=== PATIENT | male | born 1960 | race Caucasian/White ===

== ENCOUNTER → 2019-12-28 08:59 | Outpatient (CLI) | payer OTHER, SELFPAY ==
--- NOTE | 2019-12-28 08:59 | FL_ITS ---
PROCEDURE: FL BARIUM SWALLOW CLINICAL INDICATION: dysphagia COMPARISON: No exams were available for comparison TECHNIQUE: In the upright position the patient was observed to swallow barium in both the AP and lateral view. The cervical esophagus was examined under fluoroscopy with images obtained. The patient was then placed prone in the right anterior oblique position and was observed to swallow barium with Valsalva technique . FLUOROSCOPY TIME: 53 seconds FINDINGS: There was no evidence of aspiration. There was normal peristalsis. No filling defects or mucosal abnormalities. No masses or strictures. No hiatal hernia evident IMPRESSION: Negative barium swallow. Dictated by: Laith Yip MD 12/28/2019 15:19 Electronically signed by Laith Yip MD in [place] 12/28/2019 15:19
== END ==
PROVIDERS: PCP Family Medicine; Visit Provider Otolaryngology
DX: R13.10 Dysphagia, unspecified (principal)
CPT/HCPCS: 74220

== ENCOUNTER → 2020-02-03 12:07 | Outpatient (CLI) | payer OTHER, SELFPAY ==
[2020-02-03 12:45] LABS: Basophils % 0.8 % (0.1-2.0); Eosinophils # 0.2 K/mm3 (0.0-0.4); Eosinophils % 3.4 % (0.1-12.0); Hematocrit 43.3 % (42.0-52.0); Hemoglobin 14.7 g/dL (14.1-18.0); Lymphocytes # 1.8 K/mm3 (0.7-4.5); Lymphocytes % 32.4 % (10-50); Mean Corpuscular HGB Conc 33.9 g/dL (31.8-35.4); Mean Corpuscular Hemoglobin 31.6 pg (27.0-31.2); Mean Corpuscular Volume 93.3 fl (80-94); Mean Platelet Volume 7.9 fl (7.4-10.4); Monocytes # 0.4 K/mm3 (0.1-1.0); Monocytes % 7.5 % (1.7-9.3); Neutrophils # 3.2 K/mm3 (1.8-7.8); Platelet Count 270 K/mm3 (142-424); Red Blood Count 4.64 M/mm3 (4.60-6.20); Red Cell Distribution Width 13.2 % (11.5-17.5); White Blood Count 5.6 K/mm3 (4.8-10.8)
[2020-02-03 12:52] LABS: Activated Partial Thrombo Time 23.3 seconds (23.6-34.0); INR 0.99 (0.9-1.1); Prothrombin Time 10.2 seconds (9.4-11.8)
[2020-02-03 13:45] LABS: Erythrocyte Sedimentation Rate 16 mm/hr (0-20)
== END ==
PROVIDERS: Visit Provider Otolaryngology
DX: R13.10 Dysphagia, unspecified (principal)
CPT/HCPCS: 36415; 85025; 85610; 85651; 85730

== ENCOUNTER 2021-02-18 10:24 | Emergency (ER) | payer BC, SELFPAY ==
[2021-02-18 10:35] VITALS: BP 147/74; PULSE 95; RESP 16; TEMP 37; O2SAT 98; BMI 25.0
[2021-02-18 10:40] VITALS: BP 147/74; PULSE 95; RESP 16; TEMP 37; O2SAT 98; BMI 25.0
--- NOTE | 2021-02-18 11:03 | HMH.EDUTC ---
[facility] [place] Disposition Clinical Impression: Cellulitis of neck, Abscess of neck Insect bite, nonvenomous, of neck, infected Qualifiers: Encounter type: initial encounter Qualified Code(s): S10.96XA - Insect bite of unspecified part of neck, initial encounter Disposition: Home, Self-Care Condition on Discharge: Good Instructions: Cellulitis Additional Instructions: Keep the affected area clean and dry. Follow up with your regular doctor. Take the antibiotics as directed and apply the topical antibiotics as directed. Apply warm wet compresses to the affected area three or four times per day. This will help increase blood flow to the affected area and should help it get better faster. I will call you with your culture results in 3 days (on Friday), but you still need to follow up with your primary care physician regarding this issue. GO TO THE ER FOR ANY WORSENING SYMPTOMS Prescriptions: Mupirocin [Bactroban 2% Ointment 22gm tube] 1 applicatio TP TID 7 Days #1 tube Transmission Status: Received by [id number] Doxycycline Hyclate [Doxycycline 100mg Capsule] 100 mg PO Q12 10 Days #20 cap Transmission Status: Received by [id number] Referrals: Joao Claros MD [Primary Care Provider] - Time of Disposition: 11:17 Medical Decision Making - Medical Records Medical records reviewed: Yes: I reviewed the patient's medical records. - Lyle Inquiry Pt receiving controlled substance: No Vital Signs: 02/18/21 10:35 02/18/21 10:40 02/18/21 11:27 Temperature 98.6 F 98.6 F 98 F Temperature Source Oral Oral Pulse Rate 93 H Pulse Rate [Right] 95 H 95 H Respiratory Rate 16 16 16 Blood Pressure 143/77 H Blood Pressure [Right Arm] 147/74 H 147/74 H Blood Pressure Mean [Right Arm] 98 98 Blood Pressure Source [Right Arm] Automatic Cuff Blood Pressure Position [Right Arm] Sitting 02 Sat by Pulse Oximetry 98 98 Oxygen Delivery Method Room Air Orders (Tests/Meds): ED MEDICATIONS Discontinued Medications Generic Name Dose Route Start Last Admin Trade Name Freq PRN Reason Stop Dose Admin Ceftriaxone Sodium 1 gm 02/18/21 11:05 02/18/21 11:23 Ceftriaxone 1gm Vial IM 02/18/21 11:06 1 gm ONCE ONE Administration Protocol Lidocaine HCl 0 ml 02/18/21 11:05 02/18/21 11:23 Lidocaine 1% 5ml Pf Vial IM 02/18/21 11:06 2.5 ml ONCE ONE Administration ORDERS Category Date Time Status Wound Culture and Gram Stain ONCE Micro 02/18/21 11:[address] [facility] [place] HPI - General Stated complaint: spider bite on neck Time Seen by Provider: 02/18/21 10:45 Mode of Arrival: Ambulatory Source of Information: Patient Limitations: No Limitations Description of Symptoms (Recalled from Triage Doc. by RN): pt had a tick bite on his back two weeks ago that was itchy, it seems to have healed. pt now c/o a bite between his R shoulder and neck around 2 x4 in oval shape that is a bulls eye. HEENT Symptoms (Recalled from RN notes): No Resp Symptoms (Recalled from RN notes): No Skin Symptoms (Recalled from RN notes): Yes (rash on R sided of neck/shoulder in bulls eye patter) MS Symptoms (Recalled from RN notes): No Functional Status (Recalled from RN notes): na - History of Present Illness Provider Complaint: He states that for the past 2 days he has had a red tender swollen area in the area where his right shoulder meets his neck. He denies any known tick bite or other kind of bite, but he has had tick bites that felt like this in the past. He denies joint pain. He does have some fatigue that is worse than his normal fatigue. He has had a fever up to 100.5 last night. - Related Data Previous Rx's Medication Instructions Recorded Doxycycline Hyclate [Doxycycline 100 mg PO Q12 10 Days #20 cap 02/18/21 100mg Capsule] Mupirocin [Bactroban 2% Ointment 1 applicatio TP TID 7 Days #1 tube 02/18/21 22gm tube] Allergies Allergy/AdvReac Type S
[2021-02-18 11:27] VITALS: BP 143/77; PULSE 93; RESP 16; TEMP 36.6
== END 2021-02-18 11:38 | disposition home or self-care (01) ==
LOC: ER 10:37 → UTC 10:38
PROVIDERS: Emergency Provider Nurse Practitioner Family; PCP Family Medicine
DX: L02.11 Cutaneous abscess of neck (principal); S10.96XA Insect bite of unspecified part of neck, initial encounter; W57.XXXA Bitten or stung by nonvenomous insect and other nonvenomous arthropods, initial encounter; K21.9 Gastro-esophageal reflux disease without esophagitis
CPT/HCPCS: 87070; 87205; 96372; 99202; G0463

== ENCOUNTER 2025-06-15 06:20 | Day surgery (SDC) | payer MEDICARE, OTHER, SELFPAY ==
--- NOTE | 2025-06-12 10:59 | EXP.HP ---
History of Present Illness *Admission Date: 06/15/25 *History of present illness: Mr. Edge is a 64-year-old gentleman who is here for screening/surveillance colonoscopy. The patient did have initial screening colonoscopy in May 2018 and had 3 colon polyps (small serrated adenomas x 2 and mucosal prolapse polyp x 1) which were removed. Patient does state that his maternal grandfather had colon cancer. The examination is deemed medically necessary for screening/surveillance colonoscopy. The patient has been seen, interviewed and examined prior to the procedure by both myself and the anesthesia provider. [facility] Disclaimer: The information contained in this section may have been updated after the patient was seen, as this information can be updated by other users. Medical History (Updated 06/15/25 @ 07:25 by Wali Klein RN) No significant past medical history Surgical History (Updated 06/15/25 @ 07:27 by Wali Klein RN) History of appendectomy History of eye surgery S/P rotator cuff repair Family History (Updated 06/15/25 @ 07:27 by Wali Klein RN) Other Family history of colon cancer Social History (Updated 06/15/25 @ 07:28 by Wali Klein RN) Smoking Status: Never smoker alcohol intake: never substance use type: denies use current occupational status: retired Travel in the last 8 weeks?: None Have you lived/traveled outside US in past 30 days?: No Contact w/someone who lives/traveled outside US past 30 days?: No Exposure to someone with infectious disease in past 14 days?: No Do you have a fever (greater than 100.4 F or 38 C)?: No Have you tested positive for COVID-19?: No Exposed to someone with COVID-19 in past 14 days?: No Do you have a sore throat?: No Do you have a cough?: No Do you have any weakness?: No Are you experiencing any nausea/vomitting?: No Do you have any diarrhea?: No Are you experiencing any unusual bleeding?: No Do you have any muscle aches/pain?: No Do you have any abdominal pain?: No Are you experiencing loss of taste or smell?: No Other Medical History Have you received the Pneumonia Vaccine: No Review of Systems Review of Systems Review of systems (narrative): Negative *Cardiovascular Comments: Negative *Gastrointestinal Comments: Negative *Genitourinary Comments: Negative *Musculoskeletal Comments: Negative *Neurologic Comments: Negative Meds Home Medications and Allergies Home Medications ?Medication ?Instructions ?Recorded ?Confirmed ?Type ergocalciferol (vitamin D2) 10 mcg 10 mcg PO DAILY 06/15/25 06/15/25 History (400 unit) tablet New Prescriptions to Start Prescriptions: Allergies Allergy/AdvReac Type Severity Reaction Status Date / Time No Known Allergies Allergy Verified 10/18/19 15:29 Exam *Routine HEENT Exam Head: Present normocephalic Eye: Present EOMI and PERRL ENT: Present mucous membranes moist *Routine Neck Exam Neck: Present supple *Routine Respiratory Exam Respiratory: Present CTA bilaterally *Routine Cardiovascular Exam Cardiovascular: Present RRR *Routine Abdominal Exam Abdominal: Present soft and normoactive bowel sounds; Absent tenderness *Routine Rectal Exam Rectal:: deferred *Routine Genitalia Exam Genitalia:: deferred *Routine Extremities Exam Extremities: Absent cyanosis, clubbing or edema *Routine Skin Exam Skin: Present warm; Absent rash *Routine Neurological Exam Neurological: Present alert and oriented X3 Assessment and Plan *Assessment and plan (1) Personal history of adenomatous and serrated colon polyps: Status: Acute Category: Medical Code(s): Z86.0101 - Personal history of adenomatous and serrated colon polyps (2) Screening for colon cancer: Status: Acute Category: Medical Code(s): Z12.11 - Encounter for screening for malignant neoplasm of colon Plan A/P: 1. Personal history of adenomatous colon polyps is the preprocedural diagnosis. The patient will be anesthetized/sedated using MAC sedation. The patient has been seen and examined. Cardiac and lung assessment prior to the examination is stable. Proceed with planned screening/surveillance colonoscopy.
--- NOTE | 2025-06-15 06:56 | HMH.PROCNOTE ---
[facility] Procedure Note Date: 06/15/25 Time: 08:23 Procedure Note:: Colonoscopy Procedure Report: Colonoscopy with cold snare polypectomy, snare cautery and Endo Clip placement Endoscopist: Lacho Agarwal II, MD Referring physician: Walter Carpenter MD Date of Procedure: June 15, 2025 Equipment: [employer] [id number] adult colonoscope Sedation: MAC sedation Indication: Mr. Edge is a 64-year-old gentleman who is here for screening/surveillance colonoscopy. The patient did have initial screening colonoscopy in May 2018 and had 3 colon polyps (small serrated adenomas x 2 and mucosal prolapse polyp x 1) which were removed. Patient does state that his maternal grandfather had colon cancer. The patient reports no abdominal pain, weight loss, change in his bowel habits or rectal bleeding. The examination is deemed medically necessary for screening/surveillance colonoscopy. Procedure: Prior to the procedure, a history and physical exam was performed, and patient's medications and allergies were reviewed. The risks, benefits and alternatives of the sedation and procedure were discussed with the patient. All questions were answered and informed consent was obtained. The patient was brought to the procedure room. Patient identification and proposed procedure were verified by the physician and the nurse. The patient was placed in a left lateral decubitus position and the scope was passed under direct vision. Throughout the procedure, the patient's blood pressure, pulse, and oxygen saturations were monitored continuously. The colonoscopy was accomplished without difficulty. The patient tolerated the procedure well. Findings: On digital rectal examination there was normal rectal tone. There were no external hemorrhoids. The colonoscope was introduced through the anal canal to the rectum and advanced to the cecum. The ileocecal valve and appendiceal orifice were identified. The scope was advanced a short distance into the ileum which appeared grossly normal. The scope was then withdrawn into the colon. There were 4 colon polyps (ascending x 1 (3 mm), sigmoid x 2 (4 and 14 mm (pedunculated) and rectosigmoid x 1 (4 mm)). The smaller polyps were removed via cold snare polypectomy. The larger pedunculated 14 mm polyp was removed via snare cautery. A single Endo Clip was placed over the stalk of the polyp to provide hemostasis. The remaining cecum, ascending and transverse colon and mucosa were grossly normal. There were scattered diverticuli throughout the descending and sigmoid colon (LEFT colon). The rectum itself was normal. Upon retroflexion within the rectum there were grade 2 internal hemorrhoids. The preparation was excellent throughout with [place] Preparation Score of 9. The cecal time was 15 minutes. Impression: 1. Pedunculated 14 mm sigmoid colon polyp 2. 3 additional diminutive colon polyps 3. Left-sided diverticulosis 4. Grade 2 internal hemorrhoids Plan: I will follow-up the polyp histology and recommend repeat screening/surveillance colonoscopy again in 3 years. I would encourage bulking psyllium fiber supplementation on a maintenance basis.
[2025-06-15 07:21] VITALS: BMI 34.0
[2025-06-15 07:28] VITALS: BP 133/77; PULSE 72; RESP 18; TEMP 36.3; O2SAT 96
--- NOTE | 2025-06-15 07:40 | P.PNANES_ITS ---
[facility] Disclaimer: The information contained in this section may have been updated after the patient was seen, as this information can be updated by other users. Medical History (Updated 06/15/25 @ 07:25 by Wali Klein RN) No significant past medical history Surgical History (Updated 06/15/25 @ 07:27 by Wali Klein RN) History of appendectomy History of eye surgery S/P rotator cuff repair Family History (Updated 06/15/25 @ 07:27 by Wali Klein RN) Other Family history of colon cancer Social History (Updated 06/15/25 @ 07:28 by aWli Klein RN) Smoking Status: Never smoker alcohol intake: never substance use type: denies use current occupational status: retired Travel in the last 8 weeks?: None Have you lived/traveled outside US in past 30 days?: No Contact w/someone who lives/traveled outside US past 30 days?: No Exposure to someone with infectious disease in past 14 days?: No Do you have a fever (greater than 100.4 F or 38 C)?: No Have you tested positive for COVID-19?: No Exposed to someone with COVID-19 in past 14 days?: No Do you have a sore throat?: No Do you have a cough?: No Do you have any weakness?: No Are you experiencing any nausea/vomitting?: No Do you have any diarrhea?: No Are you experiencing any unusual bleeding?: No Do you have any muscle aches/pain?: No Do you have any abdominal pain?: No Are you experiencing loss of taste or smell?: No [facility] Anesthesia Checklist Patient Identification Patient Identification: Arm Band Structural Data Admitted From: Home Planned Operative Procedure/s: Colonoscopy Consent for Planned Operative Procedure(s) Verified: Yes Verified Documents: Surgical Consent and History and Physical NPO Status Verified Time NPO: 03:30 (finished prep) Additional verifications Anesthesia Reactions: No Airway Assessment Mallampati Score:: Class II C-Spine Mobility Assessed: Yes TMJ Mobility Assessed: Yes Dentition: Good Dentition Neurological Assessment Level of Consciousness: Awake, Alert and Appropriate Anesthesia Plan Anesthesia Risk discussed: Yes Anesthesia Plan: Verified ASA Class: II Anesthesia Type: MAC
[2025-06-15 08:22] VITALS: BP 108/61; PULSE 75; RESP 18; TEMP 36.1; O2SAT 96
[2025-06-15 08:32] VITALS: BP 109/61; PULSE 71; RESP 16; O2SAT 96
[2025-06-15 08:42] VITALS: BP 101/57; PULSE 71; RESP 16; O2SAT 95
[2025-06-15 08:50] VITALS: BP 110/51; PULSE 74; RESP 16; O2SAT 96
== END 2025-06-15 08:53 | disposition home or self-care (01) ==
PROVIDERS: PCP Family Medicine; Visit Provider Internal Medicine Gastroenterology
PROC: 0DJD8ZZ Inspection of Lower Intestinal Tract, Via Natural or Artificial Opening Endoscopic (ICD-10-PCS; CPT 45378; principal; 2025-06-15 08:00)
DX: Z12.11 Encounter for screening for malignant neoplasm of colon (principal); D12.7 Benign neoplasm of rectosigmoid junction; D12.5 Benign neoplasm of sigmoid colon; K63.5 Polyp of colon; Z86.0101 Personal history of adenomatous and serrated colon polyps; K57.30 Diverticulosis of large intestine without perforation or abscess without bleeding; K64.1 Second degree hemorrhoids; Z80.0 Family history of malignant neoplasm of digestive organs
CPT/HCPCS: 45385; J2003; J2704